=== PATIENT | male | born 1985 | race Caucasian/White ===

== ENCOUNTER → 2021-04-30 11:23 | Outpatient (BNVA) | payer BC, SELFPAY | PROVIDERS: Family Provider Nurse Practitioner; PCP Registered Nurse; Visit Provider Registered Nurse | DX: Z11.52 Encounter for screening for COVID-19 (principal); Z20.822 Contact with and (suspected) exposure to COVID-19 | CPT/HCPCS: 87635 ==

== ENCOUNTER → 2021-08-06 10:25 | Outpatient (BNVA) | payer BC, OTHER, SELFPAY | PROVIDERS: Family Provider Nurse Practitioner; Visit Provider Family Medicine | DX: R51.9 Headache, unspecified (principal); Z76.89 Persons encountering health services in other specified circumstances | CPT/HCPCS: 80053; 85025 ==

== ENCOUNTER → 2021-08-30 16:24 | Outpatient (BNVA) | payer BC, OTHER, SELFPAY | PROVIDERS: Family Provider Nurse Practitioner; PCP Registered Nurse; Visit Provider Family Medicine | DX: R05.9 Cough, unspecified (principal) | CPT/HCPCS: 87400; 87880 ==

== ENCOUNTER 2022-11-22 07:34 | Emergency (ER) | payer BC, SELFPAY ==
--- NOTE | 2022-11-22 07:41 | W.ED.BACK ---
HPI - Back Pain/Injury General: Chief Complaint: Back Pain/Injury Stated Complaint: back pain Time Seen by Provider: 11/22/22 07:37 Source: patient Mode of arrival: ambulatory History of Present Illness: 37 yo male with hx of back pain present with complaints of recurring back pain for the last several days. 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 No change in bowel or bladder function has had recurrent back problems in the past. No previous back surgery or advanced imaging. MD elicited complaint: back pain Pertinent past history: prior back pain Onset (ago): minute(s) Timing: constant Severity: severe Quality: sharp Location: lumbar spine Radiation: none Exacerbating factors: none Relieving factors: none Associated symptoms: Deny abdominal pain, arthralgias, chills, change in bowel habits, difficulty walking, dysuria, fatigue, fecal incontinence, fever(s), hematuria, myalgias, nausea, numbness, syncope, tingling/numbness/burning, urinary frequency, urinary urgency, vomiting or weakness Work related injury: No Review of Systems Const: Denies: fever(s), chills, fatigue or malaise ENMT: Denies: throat pain, ear or mastoid pain, nasal discharge or nasal congestion Card: Denies: chest pain, palpitations, irregular heart rhythm or syncope Resp: Denies: dyspnea, productive cough or non-productive cough GI: Denies: abdominal pain, nausea, vomiting, fecal incontinence or change in bowel habits : Denies: dysuria, urinary frequency, urinary urgency or hematuria Musc: Reports: back pain; Denies: neck pain Skin/Breast: Denies: rash or pruritus Neuro: Denies: difficulty walking PFSH ED PFSH: Medical History (Updated 11/22/22 @ 08:37 by Luis E Corado DO) Back pain of lumbar region with sciatica Social History Smoking and tobacco status: never smoked Alcohol intake: current Alcohol intake frequency: holidays/special occasions only Adopted: No Caregiver/support person: No Lives independently: Yes Household members: spouse Current occupational status: employed Sexually active: Yes Current gender identity: Male Physical Exam Const: GENERAL APPEARANCE: cooperative ORIENTATION/CONSCIOUSNESS: Yes awake, Yes oriented to person, Yes oriented to place and Yes oriented to time HENMT: COMMON NORMALS: normocephalic, atraumatic and hearing grossly normal bilaterally HEAD & SCALP: normocephalic and atraumatic Resp: COMMON NORMALS: normal respiratory effort, No retractions, No use of accessory muscles and clear to auscultation bilaterally AUSCULTATION: clear to auscultation bilaterally Cardio: COMMON NORMALS: regular rate, regular rhythm and No murmurs present (Cardio) RATE: regular rate RHYTHM: regular rhythm GI: COMMON NORMALS: Soft to palpation and No hepatosplenomegaly present AUSCULTATION: Yes normoactive bowel sounds PALPATION: Yes Soft to palpation, No Tenderness to palpation present (GI), No Guarding due to palpation present (GI) and Yes No hepatosplenomegaly present Extremity: COMMON NORMALS: normal to inspection, capillary refill normal, no clubbing, cyanosis or edema, no calf tenderness and no pedal edema Neuro: SENSORIUM/ORIENTATION: Yes oriented to person, Yes oriented to place and Yes oriented to time DEEP TENDON REFLEXES: Right patellar reflex intensity grade: 3+, Left patellar reflex intensity grade: 3+, Right ankle reflex intensity grade: 3+ and Left ankle reflex intensity grade: 3+ Psych: OTHER: Dorsum plantar flexing 5 of 5 at the left ankle and great toe. At the right ankle dorsiflexion +1 of 5 unable to hold against any resistance plantarflexion +4 diminished due to Skin: COMMON NORMALS: no rashes or lesions noted GENERAL SKIN EXAM: no rashes or lesions noted Course Vital Signs: Vital signs: Vital Signs Temperature 97.4 F L 11/22/22 07:45 Pulse Rate 71 11/22/22 07:45 Respiratory Rate 18 11/22/22 08:21 Blood Pressure 125/61 11/22/22 07:45 Pulse Oximetry 100 11/22/22 07:45 MDM - Back Pain/Injury Medical Decision Making Back pain with right leg radiculopathy he is hyperreflexive bilaterally. He does not appear to have a cauda equina syndrome at this time imaging not done in the emergency room since there was no acute trauma. Is been a chronic recurring issue. Will discharge home on steroids muscle relaxers diclofenac set him up for an outpatient MRI follow-up with his primary care Medical Records I reviewed the patient's medical records. Labs I reviewed the patient's lab results. Discharge Plan Discharge Patient Disposition: Home Clinical Impression: Back pain of lumbar region with sciatica Condition: Stable Prescriptions: New prednisone 20 mg tablet 20 mg PO TID Qty: 15 0RF Rx Instructions: 1 p.o. 3 times daily x3 days, 1 p.o. twice daily x2 days, 1 p.o. daily x2 days diclofenac sodium 75 mg tablet,delayed release (DR/EC) 75 mg PO Q12H PRN (Reason: pain) Qty: 20 0RF tizanidine 4 mg tablet 4 mg PO Q6H PRN (Reason: muscle spasticity) Qty: 30 0RF Rx Instructions: do not exceed 3 doses per 24 hrs Discontinued baclofen 5 mg tablet 5 mg PO BID PRN (Reason: muscle spasm) Qty: 30 1RF prednisone 20 mg tablet 20 mg PO DAILY 5 Days Qty: 5 0RF No Action amitriptyline 25 mg tablet 25 mg PO DAILY Qty: 90 1RF azithromycin 250 mg tablet See Rx Instructions PO .COMPLEX Qty: 6 0RF Rx Instructions: take 500 mg today (day 1), then 250 mg for 4 days (days 2-5) PO albuterol sulfate [Ventolin HFA] 90 mcg/actuation HFA aerosol inhaler 2 puff inhalation Q6H PRN (Reason: shortness of breath or wheezing) Qty: 8.5 0RF Discharge Orders: Discharge ED (Routine); Ordered 11/22/22 Ordered By: Luis E Corado Referrals: Larry Lan DO [Primary Care Provider] - Lucía Scott APN [Staff Physician] - Discharge Diet: Usual diet Discharge Activity: Limit activity as instructed Patient Instructions: Opioid Safety, Pain Management Activity Restrictions/Additional Instructions: Avoid any heavy lifting bending or stooping do not carry or lift more than 8 to 10 pounds (a gallon of milk weighs approximately 10 pounds). Use the steroid taper anti-inflammatories and muscle relaxers as needed. social services manager will make arrangements for an outpatient MRI follow-up with your doctor within the next week. Coding Level of Care Code ED Mcat Instructor for Lili Pelaez
[2022-11-22 07:45] VITALS: BP 125/61; PULSE 71; RESP 16; TEMP 36.3; O2SAT 100
[2022-11-22] MEDS: ketorolac 30 mg/mL INJ IVP (08:20)
[2022-11-22 08:21] VITALS: RESP 18
[2022-11-22] MEDS: orphenadrine 30 mg/mL Inj 2 mL 60 MG IVP (08:21)
[2022-11-22] MEDS: morphine 4 mg/mL SDV 1 mL IVP (08:21)
[2022-11-22] MEDS: dexamethasone 10 mg/mL INJ IVP (08:21)
[2022-11-22 09:51] VITALS: BP 125/61; PULSE 71; RESP 18; O2SAT 100
== END 2022-11-22 09:53 | disposition home or self-care (01) ==
PROVIDERS: Emergency Provider Family Medicine; PCP Family Medicine
DX: M54.40 Lumbago with sciatica, unspecified side (principal)
CPT/HCPCS: 96374; 96375; 99284; J1100; J1885; J2270; J2360

== ENCOUNTER 2022-11-23 12:13 | Outpatient (CLI) | payer BC, SELFPAY ==
--- NOTE | 2022-11-23 12:28 | MR_ITS ---
WS: [id number] MRI LUMBAR SPINE NONCONTRAST HISTORY: LUMBAR BACK PAIN WITH RIGHT LEG RADICULOPATHY COMPARISON: None available. TECHNIQUE: Sagittal and axial multisequence imaging is submitted. Normal lumbar alignment with no compression fractures or marrow edema. Mild disc desiccation. No marrow edema or fractures. Conus terminates normally at L1-2 disc level. L1-L2: Normal. L2-L3: Normal. L3-L4: Mild disc bulging with a central annular fissure. Bilateral facet joint arthritis and fluid in the facet joints. Moderate ligamentum flavum hypertrophy. Mild central and bilateral subarticular re cess encroachment. Very mild bilateral foraminal narrowing. L4-L5: Mild annular disc bulge with a central disc protrusion. There is an annular fissure to the RIG HT of midline. Encroachment and slight deformity on the ventral thecal sac. Slightly greater contact on the traversing RIGHT L5 nerve root. Mild central and bilateral subarticular recess stenosis. Facet joint arthritis. L5-S1: Small disc. No stenosis. Paravertebral soft tissues are normal. MR/MR lumbar spine wo con* [id number] IMPRESSION: 1. Mild central and bilateral subarticular recess stenosis at L3-4. Minimal co ntact upon the traversing L4 nerve roots but no displacement. 2. Central disc protrusion and RIGHT annular fissure with mild displacement of the thecal sac at L4-5. Disc contacting and slightly displacing the traversing RIGHT L5 nerve root. Mild central and subarticular recess stenosis at L4-5. 3. No fractures.
== END 2022-11-23 12:14 | disposition home or self-care (01) ==
PROVIDERS: PCP Family Medicine; Visit Provider Family Medicine
DX: M54.16 Radiculopathy, lumbar region (principal); M48.061 Spinal stenosis, lumbar region without neurogenic claudication; M51.26 Other intervertebral disc displacement, lumbar region
CPT/HCPCS: 72148

== ENCOUNTER → 2022-11-25 09:38 | Outpatient (BNVA) | payer BC, SELFPAY | PROVIDERS: PCP Family Medicine; Visit Provider Orthopaedic Surgery | DX: M48.062 Spinal stenosis, lumbar region with neurogenic claudication (principal); M25.551 Pain in right hip | CPT/HCPCS: 72110; 73502 ==

== ENCOUNTER → 2023-09-27 10:51 | Outpatient (BNVA) | payer OTHER, SELFPAY | PROVIDERS: PCP Family Medicine; Visit Provider Orthopaedic Surgery | DX: M48.062 Spinal stenosis, lumbar region with neurogenic claudication; M54.41 Lumbago with sciatica, right side | CPT/HCPCS: 72110 ==

== ENCOUNTER → 2024-08-09 10:37 | Outpatient (BNVA) | payer OTHER, SELFPAY | PROVIDERS: PCP Family Medicine; Visit Provider Orthopaedic Surgery | DX: M51.16 Intervertebral disc disorders with radiculopathy, lumbar region (principal) | CPT/HCPCS: 72110 ==

== ENCOUNTER 2025-04-22 08:34 | Outpatient (CLI) | payer OTHER, SELFPAY ==
--- NOTE | 2025-04-22 08:45 | MR_ITS ---
WS: [id number] MRI LUMBAR SPINE NONCONTRAST TECHNIQUE: Sagittal T1, T2 and STIR imaging. Axial T1 and T2 imaging. CLINICAL INFORMATION: M54.16 - Radiculopathy, lumbar region COMPARISON: 2022 FINDINGS: Counting performed from the craniocervical junction. L5 is partially sacralized with rudimentary disc space. Recommend plain film correlation prior to surgical intervention. L1-L2: Mild facet arthropathy. Spinal canal and foramen are patent. L2-L3: Mild annular bulging. Mild facet arthropathy. Spinal canal and foramen are patent. L3-L4: Mild disc bulging. Shallow central protrusion. Slight impingement of traversing L4 nerve roots bilaterally LEFT greater than RIGHT. Mild LEFT foraminal narrowing. RIGHT foramen is patent. Moderate facet arthropathy with small facet effusions. L4-L5: Shallow RIGHT paracentral protrusion. Impingement of traversing RIGHT L5 nerve root. Mild central canal stenosis. Moderate facet arthropathy. Foramen are patent. L5-S1: Rudimentary disc space. Spinal canal and foramen are patent. Mild facet arthropathy. Visualized pelvic bony structures: Normal. Paravertebral soft tissues: Normal. MR/MR lumbar spine wo con* [id number] IMPRESSION: 1. Counting performed from the craniocervical junction. L5 is partially sacra lized with rudimentary disc space. Recommend plain film correlation prior to goins rgical intervention. 2. Shallow RIGHT paracentral protrusion L4-5 impinges the RIGHT subarticular r ecess and traversing RIGHT L5 nerve root. Mild central canal stenosis. This is similar to previous. 3. Slightly progressed shallow central protrusion L3-4 with with slight imping ement of traversing L4 nerve roots bilaterally LEFT greater than RIGHT. Mild LE FT foraminal narrowing. 4. Moderate facet arthropathy L3-4 with small facet effusions.
== END 2025-04-22 08:35 | disposition home or self-care (01) ==
LOC: RAD 08:35
PROVIDERS: PCP Family Medicine; Visit Provider Anesthesiology Pain Medicine
DX: M51.16 Intervertebral disc disorders with radiculopathy, lumbar region (principal); M43.26 Fusion of spine, lumbar region; Q79.9 Congenital malformation of musculoskeletal system, unspecified; M51.26 Other intervertebral disc displacement, lumbar region; M48.061 Spinal stenosis, lumbar region without neurogenic claudication; M99.63 Osseous and subluxation stenosis of intervertebral foramina of lumbar region; M47.896 Other spondylosis, lumbar region
CPT/HCPCS: 72148